=== PATIENT | female | born 1995 ===

== ENCOUNTER 2016-12-17 00:45 | Emergency (ER) | payer OTHER ==
[2016-12-17 01:00] VITALS: O2SAT 98
[2016-12-17 01:34] LABS: BASOPHILS % (AUTO) 1 % (0-3); EOSINOPHILS % (AUTO) 2 % (0-9); HEMATOCRIT 42 % (35-47); MEAN CORPUSCULAR HGB CONC 32.8 gm/dl (32.0-36.0); NEUTROPHILS % (AUTO) 67.4 % (37-80)
[2016-12-17 01:38] LABS: APPEARANCE,URINE Clear; BILIRUBIN,URINE NEGATIVE (NEGATIVE); COLOR,URINE Light yellow; GLUCOSE, URINE (UA) NEGATIVE (NEGATIVE); KETONES,URINE NEGATIVE (NEGATIVE); LEUKOCYTE ESTERASE ,URINE NEGATIVE (NEGATIVE); NITRATE,URINE NEGATIVE (NEGATIVE); OCCULT BLOOD,URINE NEGATIVE (NEG-TRACE); UROBILINOGEN,URINE 0.2 (0.2-1.0 EU)
[2016-12-17 01:49] LABS: RBC,URINE 0-1 (0-3AV/HPF); WBC,URINE 0-1 (0-5AV/HPF)
[2016-12-17 01:49] LABS: ALBUMIN 4.3 gm/dl (3.4-5.0); CALCIUM 8.8 mg/dl (8.5-10.1); POTASSIUM 3.4 mMol/L (3.5-5.1)
[2016-12-17 01:50] VITALS: BP 140/89; PULSE 89; RESP 16; TEMP 98.2
[2016-12-17 01:58] LABS: ANISOCYTOSIS MOD AMT; MEAN CORPUSCULAR VOLUME 76 fL (81-99)
[2016-12-17] MEDS ORDERED: OMEPRAZOLE 20 MG CAPSULE PO ONE (02:02)
[2016-12-17] MEDS ORDERED: PANTOPRAZOLE SODIUM 40 MG ECT PO ONE ×2 (02:26)
== END 2016-12-17 02:40 | disposition home or self-care (01) | DRG 392 ==
LOC: ED 00:45
DX: R10.12 Left upper quadrant pain (principal); R06.02 Shortness of breath; R19.7 Diarrhea, unspecified; R11.0 Nausea
CPT/HCPCS: 36415; 80053; 81001; 82150; 84703; 85025; 85610; 99282

== ENCOUNTER 2017-02-28 02:04 | Emergency (ER) | payer OTHER ==
[2017-02-28] MEDS ORDERED: SODIUM CHLORIDE 0.9% 1000ML 1,000 ML IV ONE ×2 (02:14→03:17)
[2017-02-28 02:38] LABS: ALBUMIN 4.1 gm/dl (3.4-5.0); CALCIUM 7.9 mg/dl (8.5-10.1); POTASSIUM 3.1 mMol/L (3.5-5.1)
[2017-02-28 02:39] LABS: BASOPHILS % (AUTO) 2 % (0-3); EOSINOPHILS % (AUTO) 2 % (0-9); HEMATOCRIT 35 % (35-47); MEAN CORPUSCULAR HGB CONC 32.3 gm/dl (32.0-36.0); MONOCYTES % (AUTO) 6.4 % (0-12); NEUTROPHILS % (AUTO) 52.4 % (37-80)
[2017-02-28 02:41] LABS: MEAN CORPUSCULAR VOLUME 76 fL (81-99)
[2017-02-28 02:47] LABS: ANISOCYTOSIS SLIGHT AMT
[2017-02-28 03:08] VITALS: TEMP 97.6
[2017-02-28] MEDS ORDERED: POTASSIUM CHLORIDE 2 MEQ/ML SOL IV ONE (03:26)
[2017-02-28] MEDS ORDERED: POTASSIUM CHLORIDE 2 MEQ/ML SOL IV SCH (03:30)
[2017-02-28 06:06] VITALS: BP 130/79; PULSE 75; RESP 18; O2SAT 99
== END 2017-02-28 06:28 | disposition home or self-care (01) | DRG 897 ==
LOC: ED 02:04
DX: F10.920 Alcohol use, unspecified with intoxication, uncomplicated (principal); Y90.8 Blood alcohol level of 240 mg/100 ml or more
CPT/HCPCS: 36415; 80053; 80307; 85025; 96365; 96366; 99284; 99285; J3480

== ENCOUNTER 2017-04-15 02:05 | Emergency (ER) | payer OTHER ==
[2017-04-15 02:17] VITALS: RESP 18; TEMP 97.4
[2017-04-15 02:34] VITALS: O2SAT 99
[2017-04-15] MEDS ORDERED: AMLODIPINE 5 MG TAB PO ONE (02:48)
[2017-04-15] MEDS ORDERED: AMLODIPINE 5 MG TAB ONE (02:49)
[2017-04-15 03:07] VITALS: BP 159/109; PULSE 93
== END 2017-04-15 03:05 | disposition home or self-care (01) | DRG 639 ==
LOC: ED 02:05
DX: E11.65 Type 2 diabetes mellitus with hyperglycemia (principal); I10 Essential (primary) hypertension
CPT/HCPCS: 82962; 99283; 99284

== ENCOUNTER 2017-06-08 16:27 | Emergency (ER) | payer OTHER ==
[2017-06-08 17:13] VITALS: RESP 20; TEMP 99.4
[2017-06-08 17:54] VITALS: BP 128/76; PULSE 74; O2SAT 98
== END 2017-06-08 18:00 | disposition home or self-care (01) | DRG 156 ==
LOC: ED 16:27
DX: S02.2XXA Fracture of nasal bones, initial encounter for closed fracture (principal); H53.8 Other visual disturbances; Y04.0XXA Assault by unarmed brawl or fight, initial encounter; R51 Headache
CPT/HCPCS: 70486; 99283

== ENCOUNTER 2017-07-06 13:41 | Emergency (ER) | payer OTHER ==
[2017-07-06 14:02] VITALS: BP 160/113; PULSE 79; RESP 18; TEMP 98.3; O2SAT 99
== END 2017-07-06 14:42 | disposition home or self-care (01) | DRG 153 ==
LOC: ED 13:41
DX: J02.9 Acute pharyngitis, unspecified (principal)
CPT/HCPCS: 87430; 99282

== ENCOUNTER 2018-04-10 07:29 | Emergency (ER) | payer OTHER ==
[2018-04-10 07:48] VITALS: TEMP 98.6
[2018-04-10] MEDS ORDERED: ACTIVATED CHARCOAL SUS PO ONE (07:57)
[2018-04-10] MEDS ORDERED: DEXTROSE/SALINE 0.9% 1,000 ML IV SCH (08:00)
[2018-04-10] MEDS ORDERED: ETOMIDATE 2 MG/ML SOL IV ONE ×3 (08:07→08:09)
[2018-04-10] MEDS ORDERED: SUCCINYLCHOLINE CHLORIDE 20 MG/ML SOL IV ONE ×2 (08:08)
[2018-04-10] MEDS ORDERED: ROCURONIUM BROMIDE 10 MG/ML SOL IV ONE ×2 (08:09)
[2018-04-10 08:15] LABS: ALBUMIN 3.9 gm/dl (3.4-5.0); ALCOHOL 0.226 gm/dl (0.000-0.08); BILIRUBIN,TOTAL 0.3 mg/dl (0.2-1.0); CARBON DIOXIDE 23.3 mEq/L (21-32); CREATININE 0.7 mg/dl (0.60-1.00); POTASSIUM 3.3 mMol/L (3.5-5.1); TOTAL PROTEIN 7.9 gm/dl (6.4-8.2)
[2018-04-10] MEDS ORDERED: ACTIVATED CHARCOAL SUS ONE (08:36)
[2018-04-10] MEDS ORDERED: ACETYLCYSTEINE 20% SOL ONE (08:37)
[2018-04-10 08:39] LABS: HEMATOCRIT 36 % (35-47); HEMOGLOBIN 11.3 gm/dl (12.0-15.5); MEAN CORPUSCULAR HEMOGLOBIN 25.1 pg (27.0-32.0); MEAN CORPUSCULAR HGB CONC 31.5 gm/dl (32.0-36.0); MEAN CORPUSCULAR VOLUME 80 fL (81-99)
[2018-04-10] MEDS ORDERED: NALOXONE HYDROCHLORIDE 0.4 MG/ML SOL IV ONE (08:39)
[2018-04-10 08:41] LABS: BASOPHILS % (AUTO) 0 % (0-3); LYMPHOCYTES % (AUTO) 37 % (10-50)
[2018-04-10 08:42] LABS: EOSINOPHILS % (AUTO) 2 % (0-9)
[2018-04-10] MEDS ORDERED: NALOXONE HYDROCHLORIDE 0.4 MG/ML SOL ONE (09:04)
[2018-04-10 09:14] LABS: INR 1.05 (0.86-1.12)
[2018-04-10 09:18] VITALS: BP 117/79; PULSE 94; RESP 23; O2SAT 98
== END 2018-04-10 08:51 | disposition short-term general hospital (02) | DRG 918 ==
LOC: ED 07:29
DX: T44.8X2A Poisoning by centrally-acting and adrenergic-neuron-blocking agents, intentional self-harm, initial encounter (principal)
CPT/HCPCS: 80053; 80307; 85025; 85610; 93005; 96365; 96374; 99291; J0330; J2310; J7608; A9270-GY; J3490

== ENCOUNTER 2018-05-09 19:02 | Emergency (ER) | payer OTHER ==
[2018-05-09 19:10] VITALS: RESP 18; TEMP 98.9
[2018-05-09 19:54] LABS: BASOPHILS % (AUTO) 1 % (0-3); EOSINOPHILS % (AUTO) 1 % (0-9); HEMATOCRIT 37 % (35-47); HEMOGLOBIN 11.8 gm/dl (12.0-15.5); LYMPHOCYTES % (AUTO) 32.5 % (10-50); MEAN CORPUSCULAR HEMOGLOBIN 24.8 pg (27.0-32.0); MEAN CORPUSCULAR HGB CONC 31.7 gm/dl (32.0-36.0); MONOCYTES % (AUTO) 5.1 % (0-12); NEUTROPHILS % (AUTO) 59.9 % (37-80)
[2018-05-09 19:55] LABS: MEAN CORPUSCULAR VOLUME 78 fL (81-99)
[2018-05-09 20:06] LABS: ANISOCYTOSIS SLIGHT AMT
[2018-05-09 20:13] LABS: ALBUMIN 3.9 gm/dl (3.4-5.0); BILIRUBIN,TOTAL 0.2 mg/dl (0.2-1.0); CALCIUM 7.5 mg/dl (8.5-10.1); CARBON DIOXIDE 20.1 mEq/L (21-32); CREATININE 0.67 mg/dl (0.60-1.00); POTASSIUM 3.5 mMol/L (3.5-5.1); THYROID STIMULATING HORMONE 0.323 uIU/ml (0.358-3.740); TOTAL PROTEIN 7.9 gm/dl (6.4-8.2)
[2018-05-09 20:16] LABS: ALCOHOL 0.331 gm/dl (0.000-0.08)
[2018-05-09] MEDS ORDERED: ACETAMINOPHEN 500 MG 500 MG TAB PO ONE (20:27)
[2018-05-09] MEDS ORDERED: ACETAMINOPHEN 500 MG 500 MG TAB ONE (20:28)
[2018-05-09] MEDS ORDERED: SODIUM CHLORIDE 0.9% 1000ML 1,000 ML IV ONE ×2 (21:00→22:43)
[2018-05-09 21:02] LABS: APPEARANCE,URINE Clear; BILIRUBIN,URINE NEGATIVE (NEGATIVE); COLOR,URINE Yellow; GLUCOSE, URINE (UA) 2+ (NEGATIVE); KETONES,URINE NEGATIVE (NEGATIVE); LEUKOCYTE ESTERASE ,URINE NEGATIVE (NEGATIVE); NITRATE,URINE NEGATIVE (NEGATIVE); OCCULT BLOOD,URINE TRACE INTACT (NEG-TRACE); PH,URINE 5.5; UROBILINOGEN,URINE 0.2 (0.2-1.0 EU)
[2018-05-09 21:05] LABS: AMPHETAMINES NEGATIVE (NEGATIVE); BACTERIA 1+ (< 1+); BARBITUATES NEGATIVE (NEGATIVE); BENZODIAZEPINES NEGATIVE (NEGATIVE); CANNABINOL(THC) POSITIVE (NEGATIVE); COCAINE(COC) NEGATIVE (NEGATIVE); CRYSTALS NEGATIVE (0-3 AVE/HPF); METHADONE NEGATIVE (NEGATIVE); METHAMPHETAMINES NEGATIVE (NEGATIVE); OPIATES(OP13) NEGATIVE (NEGATIVE); OXYCODONE(OXY) NEGATIVE (NEGATIVE); PROPOXYPHENE(PPX) NEGATIVE (NEGATIVE); RBC,URINE 0-2 (0-3AV/HPF); TRICYCLIC ANTIDEPRESSANTS NEGATIVE (NEGATIVE); WBC,URINE 0-2 (0-5AV/HPF)
[2018-05-09] MEDS ORDERED: POTASSIUM CHLORIDE 10 MEQ TER PO ONE (21:43)
[2018-05-09] MEDS ORDERED: POTASSIUM CHLORIDE 10 MEQ TER ONE (21:45)
[2018-05-10 04:43] VITALS: BP 135/97
[2018-05-10 04:44] VITALS: PULSE 114; O2SAT 99
== END 2018-05-10 03:31 | disposition home or self-care (01) | DRG 885 ==
LOC: ED 19:02
DX: F33.2 Major depressive disorder, recurrent severe without psychotic features (principal); F10.129 Alcohol abuse with intoxication, unspecified
CPT/HCPCS: 36415; 80053; 80305; 80307; 81001; 84443; 84703; 85025; 96365; 96366; 99284; A9270-GY

== ENCOUNTER 2018-07-07 08:02 | Emergency (ER) | payer OTHER ==
[2018-07-07 08:21] VITALS: RESP 20; TEMP 97.9; O2SAT 98
[2018-07-07] MEDS ORDERED: ONDANSETRON 4 MG ODT BU ONE (08:48)
[2018-07-07] MEDS ORDERED: ONDANSETRON 4 MG ODT ONE (08:52)
[2018-07-07 09:01] LABS: APPEARANCE,URINE Clear; BILIRUBIN,URINE NEGATIVE (NEGATIVE); COLOR,URINE Yellow; GLUCOSE, URINE (UA) 2+ (NEGATIVE); KETONES,URINE TRACE (NEGATIVE); LEUKOCYTE ESTERASE ,URINE NEGATIVE (NEGATIVE); NITRATE,URINE NEGATIVE (NEGATIVE); OCCULT BLOOD,URINE NEGATIVE (NEG-TRACE); PH,URINE 6.5; UROBILINOGEN,URINE 0.2 (0.2-1.0 EU)
[2018-07-07 09:13] LABS: ALBUMIN 3.9 gm/dl (3.4-5.0); BILIRUBIN,TOTAL 0.3 mg/dl (0.2-1.0); CALCIUM 8.1 mg/dl (8.5-10.1); CARBON DIOXIDE 25.4 mEq/L (21-32); CREATININE 0.65 mg/dl (0.60-1.00); POTASSIUM 3.4 mMol/L (3.5-5.1); TOTAL PROTEIN 8.1 gm/dl (6.4-8.2)
[2018-07-07 09:16] LABS: BASOPHILS % (AUTO) 1 % (0-3); EOSINOPHILS % (AUTO) 3 % (0-9); HEMATOCRIT 36 % (35-47); HEMOGLOBIN 10.8 gm/dl (12.0-15.5); LYMPHOCYTES % (AUTO) 26.1 % (10-50); MEAN CORPUSCULAR HEMOGLOBIN 22.5 pg (27.0-32.0); MEAN CORPUSCULAR HGB CONC 30.2 gm/dl (32.0-36.0); NEUTROPHILS % (AUTO) 64.1 % (37-80)
[2018-07-07 09:17] LABS: BACTERIA NEGATIVE (< 1+); CRYSTALS NEGATIVE (0-3 AVE/HPF); EPITHELIAL CELLS NEGATIVE (SQUAMOUS); RBC,URINE 0-1 (0-3AV/HPF); WBC,URINE NEG (0-5AV/HPF)
[2018-07-07 09:19] LABS: MEAN CORPUSCULAR VOLUME 75 fL (81-99)
[2018-07-07 09:46] LABS: ANISOCYTOSIS SLIGHT; POIKILOCYTOSIS SLIGHT; STOMATOCYTES PRESENT
[2018-07-07] MEDS ORDERED: LIDOCAINE HCL 2% (VISCOUS) 20 ML SOL MT ONE (11:43)
[2018-07-07] MEDS ORDERED: ALUMINUM/MAGNESIUM 30 ML SUS PO ONE (11:43)
[2018-07-07] MEDS ORDERED: LIDOCAINE HCL 2% (VISCOUS) 20 ML SOL ONE (11:47)
[2018-07-07] MEDS ORDERED: ALUMINUM/MAGNESIUM 30 ML SUS ONE (11:47)
[2018-07-07 12:38] VITALS: BP 151/99; PULSE 92
== END 2018-07-07 12:25 | disposition home or self-care (01) | DRG 392 ==
LOC: ED 08:02
DX: K29.20 Alcoholic gastritis without bleeding (principal)
CPT/HCPCS: 36415; 74177; 80053; 81001; 84703; 85025; 99283; Q9967; A9270-GY

== ENCOUNTER 2018-09-11 16:48 | Emergency (ER) | payer OTHER ==
[2018-09-11 17:05] VITALS: BP 156/113; PULSE 87; RESP 16; TEMP 97.9; O2SAT 100
[2018-09-11] MEDS ORDERED: KETOROLAC TROMETHAMINE 30 MG/ML SOL IM ONE (17:17)
[2018-09-11] MEDS ORDERED: KETOROLAC TROMETHAMINE 30 MG/ML SOL ONE (17:21)
== END 2018-09-11 18:06 | disposition home or self-care (01) | DRG 605 ==
LOC: ED 16:48
DX: S40.022A Contusion of left upper arm, initial encounter (principal)
CPT/HCPCS: 73070; 73110; 96372; 99283; J1885

== ENCOUNTER 2018-11-30 17:18 | Emergency (ER) | payer OTHER ==
[2018-11-30 17:55] VITALS: PULSE 93; RESP 20; O2SAT 99
[2018-11-30] MEDS ORDERED: AMOXICILLIN 250 MG CAP PO ONE (18:24)
[2018-11-30] MEDS ORDERED: METRONIDAZOLE 250 MG TAB ONE (18:33)
[2018-11-30] MEDS ORDERED: AMOXICILLIN(FRIDGE) 125/5 ML BOTTLE ONE (18:35)
[2018-11-30] MEDS: AMOXICILLIN(FRIDGE) 125/5 ML BOTTLE PO ONE (18:40)
[2018-11-30] MEDS: METRONIDAZOLE 250 MG TAB PO ONE (18:40)
[2018-11-30 18:42] VITALS: BP 142/99; TEMP 95.5
== END 2018-11-30 18:49 | disposition home or self-care (01) | DRG 759 ==
LOC: ED 17:18
DX: N76.0 Acute vaginitis (principal); T19.2XXA Foreign body in vulva and vagina, initial encounter
CPT/HCPCS: 99283; A9270-GY

== ENCOUNTER 2019-03-12 01:21 | Emergency (ER) | payer OTHER ==
[2019-03-12 01:22] VITALS: O2SAT 99
[2019-03-12 01:37] VITALS: RESP 20; TEMP 97.9
[2019-03-12] MEDS ORDERED: SULFAMETHOXAZOLE/TRIMETHOPRI 800/160 MG PO ONE (01:39)
[2019-03-12] MEDS ORDERED: SULFAMETHOXAZOLE/TRIMETHOPRI 800/160 MG ONE (01:45)
[2019-03-12 02:13] VITALS: BP 138/93; PULSE 76
== END 2019-03-12 02:06 | disposition home or self-care (01) | DRG 601 ==
LOC: ED 01:21
DX: N61.0 Mastitis without abscess (principal)
CPT/HCPCS: 99282; A9270-GY